=== PATIENT | male | born 1950 | race Caucasian/White ===

== ENCOUNTER 2022-12-18 07:42 | Emergency (ER) | payer MEDICARE ==
[~2022-12-18] VITALS: Ht 188 cm; Wt 76.0 kg
[2022-12-18 08:16] LABS: BASOPHILS % (AUTO) 0.5 % (0.0-2.0); EOSINOPHILS % (AUTO) 1.5 % (1.0-6.0); HEMATOCRIT 46.3 % (41-53); HEMOGLOBIN 15.4 g/dL (13.5-17.5); LYMPHOCYTES # (AUTO) 1.6 K/uL (1.0-4.8); LYMPHOCYTES % (AUTO) 19.7 % (22.0-44.0); MEAN CORPUSCULAR HEMOGLOBIN 33.3 pg (26.0-34.0); MEAN CORPUSCULAR HGB CONC 33.2 G/dL (31.0-37.0); MEAN CORPUSCULAR VOLUME 100 fL (80-100); MONOCYTES # (AUTO) 0.5 K/uL (0.1-1.0); MONOCYTES % (AUTO) 5.9 % (2.0-9.0); NEUTROPHILS # (AUTO) 5.9 K/uL (1.8-7.7); NEUTROPHILS % (AUTO) 72.4 % (40.0-70.0); PLATELET COUNT (AUTO) 227 K/uL (150-450); RED BLOOD CELL COUNT(AUTO) 4.62 MIL/uL (4.50-5.90); RED CELL DISTRIBUTION WIDTH 13.7 % (11.5-14.5); WHITE BLOOD COUNT (AUTO) 8.2 K/uL (4.5-11.0)
[2022-12-18 08:18] LABS: COVID AG,FIA SOURCE NASOPHARYNGEAL
[2022-12-18 08:25] LABS: ANION GAP 16 mmol/L (8-16); CALCIUM, TOTAL 9.3 mg/dL (8.8-10.5); CARBON DIOXIDE 27 mmol/L (22-29); CHLORIDE 98 mmol/L (98-107); GLOMERULAR FILTR. RATE CALC > 60 mL/min (>60); GLUCOSE,RANDOM 107 mg/dL (70-110); POTASSIUM 4.3 mmol/L (3.5-5.1); SODIUM SERUM 141 mmol/L (136-145); UREA NITROGEN, BLOOD 18 mg/dL (7-18)
[2022-12-18 08:29] LABS: PROTHROMBIN TIME 10.8 SEC (9.4-11.6)
[2022-12-18 08:32] LABS: TROPONIN I-HIGH SENSITIVITY 5 ng/L (<76)
[2022-12-18 08:40] LABS: ALANINE AMINOTRANSFERASE 21 U/L (12-78); ALBUMIN 3.4 g/dL (3.4-5.0); ALKALINE PHOSPHATASE 103 U/L (46-116); ASPARTATE AMINOTRANSFERASE 22 U/L (15-37); BILIRUBIN,TOTAL 0.5 mg/dL (0.1-1.0); CREATINE KINASE, TOTAL ONLY 66 U/L (39-308); THYROID STIMULATING HORMONE 3.65 uIU/mL (0.36-3.74); TOTAL PROTEIN, SERUM 7.4 g/dL (6.4-8.2)
[2022-12-18 08:46] LABS: B-TYPE NATRIURETIC PEPTIDE 61 pg/mL (0-100)
[2022-12-18 08:54] LABS: ALCOHOL, BLOOD (SERUM) < 3 mg/dL (0-10)
[2022-12-18 09:12] LABS: SARS-COV2 (COVID) ANTIGEN,FIA Negative (Negative)
[2022-12-18 09:29] LABS: RBC MORPHOLOGY COMMENT ABNORMAL RBC MORPH
[2022-12-18] MEDS ORDERED: PANT40TA54 PO (09:46)
[2022-12-18] MEDS ORDERED: DILT-92 PO (09:46)
[2022-12-18] MEDS ORDERED: TAMS-13 PO (09:46)
[2022-12-18] MEDS ORDERED: BUSP15 PO (09:46)
[2022-12-18] MEDS ORDERED: APIX5TAB PO (09:46)
[2022-12-18 10:25] LABS: APPEARANCE,URINE CLEAR (CLEAR); BILIRUBIN,URINE NEGATIVE (NEGATIVE); COLOR,URINE LIGHT YELLOW (YELLOW); GLUCOSE, URINE (UA) NEGATIVE (NEGATIVE); KETONES,URINE NEGATIVE (NEGATIVE); LEUKOCYTE ESTERASE ,URINE NEGATIVE (NEGATIVE); NITRATE,URINE NEGATIVE (NEGATIVE); OCCULT BLOOD,URINE NEGATIVE (NEGATIVE); PH,URINE 6.5 (5.0-8.0); PROTEIN,URINE NEGATIVE (NEGATIVE); SPECIFIC GRAVITIY, URINE 1.015 (1.003-1.030); UROBILINOGEN,URINE <=1.0 mg/dL (<=1.0)
[2022-12-18 11:31] LABS: TROPONIN I-HIGH SENSITIVITY 6 ng/L (<76)
[2022-12-18 12:47] VITALS: BP 120/93; PULSE 55; RESP 18; TEMP 97.8
== END 2022-12-18 12:59 | disposition home or self-care (01) ==
LOC: EMS 07:47
DX: F41.9 Anxiety disorder, unspecified (principal); I48.91 Unspecified atrial fibrillation; Z20.822 Contact with and (suspected) exposure to COVID-19
CPT/HCPCS: 99284; 71045; 87426; 80053; 82550; 83880; 84443; 84484; 85025; 85610; 85730; 36415; 93005; 81003; G0480

== ENCOUNTER 2023-09-09 08:38 | Inpatient (IN) | payer MEDICARE, MEDICAID ==
[~2023-09-09] VITALS: Ht 188 cm; Wt 88.7 kg
[~2023-09-09 08:38] MED LIST: APIX5TAB PO; BUSP15 PO; DILT-92 PO; PANT40TA54 PO; TAMS0.4C94 PO
[2023-09-09] MEDS ORDERED: LEVO25TA9 PO (09:06)
[2023-09-09] MEDS ORDERED: DIAZ5TAB4 PO (09:06)
[2023-09-09] MEDS ORDERED: ESCI5TAB16 PO (09:06)
[2023-09-09] MEDS ORDERED: METO-408 PO (09:06)
[2023-09-09] MEDS ORDERED: MIRT-92 PO (09:06)
[2023-09-09] MEDS ORDERED: MIDO5TAB5 PO (09:06)
[2023-09-09] MEDS ORDERED: FLUD.1 PO (09:06)
[2023-09-09] MEDS ORDERED: GABA-1181 PO (09:06)
[2023-09-09 09:27] LABS: ANION GAP 7 mmol/L (8-16); CALCIUM, TOTAL 8.4 mg/dL (8.8-10.5); CARBON DIOXIDE 29 mmol/L (22-29); CHLORIDE 103 mmol/L (98-107); CREATININE 1.09 mg/dL (0.60-1.30); GLOMERULAR FILTR. RATE CALC > 60 mL/min (>60); GLUCOSE,RANDOM 102 mg/dL (70-110); POTASSIUM 3.1 mmol/L (3.5-5.1); SODIUM SERUM 139 mmol/L (136-145); UREA NITROGEN, BLOOD 11 mg/dL (7-18)
[2023-09-09 09:49] LABS: ALCOHOL, URINE DRUG SCREEN POSITIVE (NEGATIVE); AMPHET/METH SCREEN,URINE NEGATIVE (NEGATIVE); BARBITURATE SCREEN, URINE NEGATIVE (NEGATIVE); BENZODIAZEPINES SCREEN,URINE POSITIVE (NEGATIVE); CANNABINOID SCREEN,URINE NEGATIVE (NEGATIVE); COCAINE SCREEN,URINE NEGATIVE (NEGATIVE); METHADONE SCREEN, URINE NEGATIVE (NEGATIVE); OPIATE SCREEN,URINE NEGATIVE (NEGATIVE); PHENCYCLIDINE SCREEN,URINE NEGATIVE (NEGATIVE)
[2023-09-09] MEDS: LORazepam 2 MG TABLET PO PRN (10:43)
[2023-09-09 11:13] LABS: COVID AG,FIA SOURCE NASAL SWAB
[2023-09-09 11:14] LABS: APPEARANCE,URINE CLEAR (CLEAR); BILIRUBIN,URINE NEGATIVE (NEGATIVE); COLOR,URINE COLORLESS (YELLOW); GLUCOSE, URINE (UA) NEGATIVE (NEGATIVE); KETONES,URINE NEGATIVE (NEGATIVE); LEUKOCYTE ESTERASE ,URINE NEGATIVE (NEGATIVE); NITRATE,URINE NEGATIVE (NEGATIVE); OCCULT BLOOD,URINE NEGATIVE (NEGATIVE); PROTEIN,URINE NEGATIVE (NEGATIVE); SPECIFIC GRAVITIY, URINE 1.006 (1.003-1.030); UROBILINOGEN,URINE <=1.0 mg/dL (<=1.0)
[2023-09-09 11:44] LABS: SARS-COV2 (COVID) ANTIGEN,FIA Negative (Negative)
[2023-09-09] MEDS: ZINC OXIDE 16% PASTE 57 GM TUBE TP ONE (11:53)
[2023-09-09 12:31] LABS: EOSINOPHILS % (AUTO) 1.1 % (1.0-6.0); HEMATOCRIT 40.1 % (41-53); HEMOGLOBIN 13.6 g/dL (13.5-17.5); LYMPHOCYTES # (AUTO) 1.1 K/uL (1.0-4.8); LYMPHOCYTES % (AUTO) 21.1 % (22.0-44.0); MEAN CORPUSCULAR HEMOGLOBIN 36.5 pg (26.0-34.0); MEAN CORPUSCULAR HGB CONC 33.9 G/dL (31.0-37.0); MEAN CORPUSCULAR VOLUME 108 fL (80-100); MONOCYTES # (AUTO) 0.4 K/uL (0.1-1.0); MONOCYTES % (AUTO) 8.6 % (2.0-9.0); NEUTROPHILS # (AUTO) 3.6 K/uL (1.8-7.7); NEUTROPHILS % (AUTO) 68.2 % (40.0-70.0); PLATELET COUNT (AUTO) 209 K/uL (150-450); RED BLOOD CELL COUNT(AUTO) 3.73 MIL/uL (4.50-5.90); RED CELL DISTRIBUTION WIDTH 14.9 % (11.5-14.5); WHITE BLOOD COUNT (AUTO) 5.2 K/uL (4.5-11.0)
[2023-09-09] MEDS: DIAZEPAM 5 MG TABLET PO ONE (14:22)
[2023-09-09] MEDS: POTASSIUM CHLORIDE 20 MEQ ER TABLET PO ONE (14:22)
[2023-09-09] MEDS ORDERED: GABA-529 PO (14:32)
[2023-09-09] MEDS ORDERED: MIDO10TA PO (14:32)
[2023-09-09] MEDS: DILTIAZEM HCL CD 120 MG ER CAPSULE PO ONE (14:47)
[2023-09-09 15:00] LABS: TROPONIN I-HIGH SENSITIVITY 7 ng/L (<76)
[2023-09-09 15:44] LABS: TROPONIN I-HIGH SENSITIVITY 9 ng/L (<76)
[2023-09-09 18:36] LABS: RBC MORPHOLOGY COMMENT ABNORMAL RBC MORPH
[2023-09-09] MEDS: QUEtiapine FUMARATE 100 MG TABLET PO PRN (21:30)
[2023-09-09] MEDS: ZOLPIDEM TARTRATE 10 MG TABLET PO PRN (21:31)
[2023-09-09 23:16] VITALS: BP 120/70; PULSE 106; RESP 18; TEMP 96.7; O2SAT 96
[2023-09-10] MEDS ORDERED: ONDANSETRON HCL 4 MG TABLET PO PRN (07:00)
[2023-09-10] MEDS ORDERED: ALBUTEROL SULFATE HFA 90 MCG/PUFF 8 GM INHALER IH PRN (07:00)
[2023-09-10] MEDS ORDERED: MAG HYDROX/ALUMINUM HYD/SIMETH ES 30 ML SUSPENSION UDCUP PO PRN (07:00)
[2023-09-10] MEDS ORDERED: LOPERAMIDE HCL 2 MG CAPSULE PO PRN (07:00)
[2023-09-10] MEDS ORDERED: PETROLATUM,WHITE 28 GM JELLY TP PRN (07:00)
[2023-09-10] MEDS ORDERED: GuaiFENesin/D-METHORPHAN [SUGAR-FREE] 200-20MG/10 ML SYRUP UDCUP PO PRN (07:00)
[2023-09-10 08:44] VITALS: BP 93/53; PULSE 84; RESP 16; TEMP 97.7; O2SAT 96
[2023-09-10] MEDS: PANTOPRAZOLE SODIUM 40 MG DR TABLET PO SCH (08:53)
[2023-09-10] MEDS: GABAPENTIN 100 MG CAPSULE PO SCH (08:53)
[2023-09-10] MEDS: APIXABAN 5 MG TABLET PO SCH (08:54)
[2023-09-10] MEDS: METOPROLOL SUCCINATE 25 MG ER TABLET PO SCH (09:00)
[2023-09-10] MEDS ORDERED: PANTOPRAZOLE SODIUM 40 MG DR TABLET PO SCH (09:00)
[2023-09-10] MEDS: TAMSULOSIN HCL 0.4 MG CAPSULE PO SCH (09:00)
[2023-09-10] MEDS ORDERED: AMOX TR/POT CLAV 875 MG/125 MG TABLET PO SCH (09:00)
[2023-09-10] MEDS: LEVOFLOXACIN 500 MG TABLET PO SCH (09:00)
[2023-09-10] MEDS ORDERED: METOPROLOL SUCCINATE 25 MG ER TABLET PO SCH (09:00)
[2023-09-10] MEDS: BACITRACIN 28 GM OINTMENT TP SCH (09:23)
[2023-09-10 10:34] VITALS: BP 98/65; PULSE 80; RESP 18; TEMP 98
[2023-09-10] MEDS: ACETAMINOPHEN 325 MG TABLET PO PRN (10:45)
[2023-09-10 11:45] VITALS: RESP 18
[2023-09-10] MEDS: ESCITALOPRAM OXALATE 10 MG TABLET PO SCH (12:57)
[2023-09-10 14:40] VITALS: BP 110/68; PULSE 100; RESP 18
[2023-09-10] MEDS: GABAPENTIN 300 MG CAPSULE PO SCH (20:04)
[2023-09-10] MEDS: MIRTAZAPINE 15 MG TABLET PO SCH (20:04)
[2023-09-10] MEDS ORDERED: GABAPENTIN 300 MG CAPSULE PO SCH (21:00)
[2023-09-10 21:12] VITALS: BP 114/68; PULSE 98; RESP 19; TEMP 97.4; O2SAT 99
[2023-09-10 21:30] VITALS: BP 114/68; PULSE 69; RESP 18; TEMP 97.4; O2SAT 99
[2023-09-11] MEDS: LEVOTHYROXINE SODIUM 25 MCG TABLET PO SCH (06:30)
[2023-09-11] MEDS ORDERED: LEVOTHYROXINE SODIUM 25 MCG TABLET PO SCH (06:30)
[2023-09-11 08:57] LABS: HEMOGLOBIN A1C 5.1 % (3.8-5.6)
[2023-09-11 09:16] LABS: ALCOHOL, URINE DRUG SCREEN NEGATIVE (NEGATIVE); AMPHET/METH SCREEN,URINE NEGATIVE (NEGATIVE); BARBITURATE SCREEN, URINE NEGATIVE (NEGATIVE); BENZODIAZEPINES SCREEN,URINE POSITIVE (NEGATIVE); CANNABINOID SCREEN,URINE NEGATIVE (NEGATIVE); COCAINE SCREEN,URINE NEGATIVE (NEGATIVE); METHADONE SCREEN, URINE NEGATIVE (NEGATIVE); OPIATE SCREEN,URINE NEGATIVE (NEGATIVE); PHENCYCLIDINE SCREEN,URINE NEGATIVE (NEGATIVE)
[2023-09-11 09:18] LABS: CHOL/HDL RATIO 1.9 (4.2-7.3); THYROID STIMULATING HORMONE 3.7 uIU/mL (0.36-3.74)
[2023-09-11 09:25] LABS: APPEARANCE,URINE CLEAR (CLEAR); BILIRUBIN,URINE NEGATIVE (NEGATIVE); COLOR,URINE YELLOW (YELLOW); GLUCOSE, URINE (UA) NEGATIVE (NEGATIVE); KETONES,URINE NEGATIVE (NEGATIVE); LEUKOCYTE ESTERASE ,URINE NEGATIVE (NEGATIVE); NITRATE,URINE NEGATIVE (NEGATIVE); OCCULT BLOOD,URINE NEGATIVE (NEGATIVE); PH,URINE 6.5 (5.0-8.0); PH,URINE DRUG SCREEN 6.5 (5.0-8.0); PROTEIN,URINE NEGATIVE (NEGATIVE); SPECIFIC GRAVITIY, URINE 1.021 (1.003-1.030); UROBILINOGEN,URINE <=1.0 mg/dL (<=1.0)
[2023-09-11 10:39] VITALS: BP 128/67; PULSE 95; RESP 18; TEMP 97.8
[2023-09-11] MEDS: POTASSIUM CHLORIDE 20 MEQ ER TABLET PO ONE (11:29)
[2023-09-11 12:24] VITALS: BP 115/80
[2023-09-11 20:36] VITALS: BP 131/80; PULSE 87; RESP 20; TEMP 97; O2SAT 95
[2023-09-12 00:35] VITALS: BP 114/72; PULSE 86; RESP 18; TEMP 97.6; O2SAT 97
[2023-09-12 08:34] VITALS: BP 119/80; PULSE 79; RESP 19; TEMP 97.8; O2SAT 98
[2023-09-12] MEDS: ACETAMINOPHEN 325 MG TABLET PO PRN (19:19)
[2023-09-12 20:54] VITALS: BP 99/64; PULSE 62; RESP 16; TEMP 97.1; O2SAT 99
[2023-09-12 21:00] VITALS: BP 119/80; PULSE 62; RESP 19; TEMP 97.1; O2SAT 98
[2023-09-13 08:21] VITALS: BP 110/68; PULSE 67; RESP 17; TEMP 96.1; O2SAT 99
[2023-09-13 11:10] VITALS: BP 141/89
[2023-09-13 13:00] VITALS: BP 120/80; PULSE 80; RESP 18; TEMP 98.1; O2SAT 98
[2023-09-13 17:13] VITALS: BP 122/84; PULSE 81; RESP 18
[2023-09-13 20:33] VITALS: BP 131/93; PULSE 68; RESP 18; TEMP 96.8
[2023-09-14 03:51] VITALS: BP 120/82; PULSE 75; RESP 18; TEMP 98; O2SAT 98
[2023-09-14 09:12] VITALS: BP 147/87; PULSE 71; RESP 18; TEMP 96.3; O2SAT 99
[2023-09-14 10:51] VITALS: BP 130/85; PULSE 71; RESP 18; TEMP 97.3; O2SAT 98
[2023-09-14 22:02] VITALS: BP 105/64; PULSE 69; RESP 18; TEMP 96.8; O2SAT 97
[2023-09-14 22:36] VITALS: BP 105/64; PULSE 69; RESP 18; TEMP 96.8; O2SAT 97
[2023-09-15] MEDS: MULTIVITAMINS WITH MINERALS, THERAPEUTIC TABLET PO SCH (08:18)
[2023-09-15 09:11] VITALS: BP 94/60; PULSE 69; RESP 16; TEMP 96.5; O2SAT 99
[2023-09-15 10:19] VITALS: BP 123/70; RESP 18
[2023-09-15] MEDS: DIAZEPAM 5 MG TABLET PO SCH (16:13)
[2023-09-15 20:23] VITALS: BP 95/63; PULSE 95; RESP 16; TEMP 97.4; O2SAT 98
[2023-09-15] MEDS: CLINDAMYCIN HCL 300 MG CAPSULE PO SCH (21:50)
[2023-09-16 07:47] LABS: BASOPHILS % (AUTO) 0.8 % (0.0-2.0); EOSINOPHILS % (AUTO) 1.9 % (1.0-6.0); HEMATOCRIT 42.4 % (41-53); HEMOGLOBIN 14.2 g/dL (13.5-17.5); LYMPHOCYTES # (AUTO) 1.7 K/uL (1.0-4.8); LYMPHOCYTES % (AUTO) 30.9 % (22.0-44.0); MEAN CORPUSCULAR HGB CONC 33.5 G/dL (31.0-37.0); MEAN CORPUSCULAR VOLUME 108 fL (80-100); MONOCYTES # (AUTO) 0.6 K/uL (0.1-1.0); MONOCYTES % (AUTO) 10.6 % (2.0-9.0); NEUTROPHILS # (AUTO) 3.1 K/uL (1.8-7.7); NEUTROPHILS % (AUTO) 55.8 % (40.0-70.0); PLATELET COUNT (AUTO) 210 K/uL (150-450); RED BLOOD CELL COUNT(AUTO) 3.94 MIL/uL (4.50-5.90); RED CELL DISTRIBUTION WIDTH 14.8 % (11.5-14.5); WHITE BLOOD COUNT (AUTO) 5.6 K/uL (4.5-11.0)
[2023-09-16 08:44] VITALS: BP 120/78; PULSE 93; RESP 18; TEMP 96.7; O2SAT 97
[2023-09-16] MEDS ORDERED: ESCITALOPRAM OXALATE 10 MG TABLET PO SCH (09:00)
[2023-09-16 17:09] VITALS: BP 118/76
[2023-09-16] MEDS: NICOTINE 14 MG/24 HOUR PATCH TD PRN (18:29)
[2023-09-16 20:29] VITALS: BP 118/76; PULSE 65; RESP 18; TEMP 96.2; O2SAT 99
[2023-09-17 08:52] VITALS: BP 103/69; PULSE 92; RESP 18; TEMP 96.6; O2SAT 99
[2023-09-17] MEDS: DIAZEPAM 5 MG TABLET PO SCH (16:32)
[2023-09-17 17:25] VITALS: BP 112/78; PULSE 87; RESP 18
[2023-09-17] MEDS: QUEtiapine FUMARATE 100 MG TABLET PO SCH (20:37)
[2023-09-17 21:30] VITALS: BP 148/102; PULSE 77; RESP 17; TEMP 97.5; O2SAT 96
[2023-09-18 08:39] VITALS: BP 109/62; PULSE 78; RESP 19; TEMP 98.1; O2SAT 95
[2023-09-18] MEDS: DOCUSATE SODIUM 100 MG CAPSULE PO PRN (16:07)
[2023-09-18 18:09] VITALS: RESP 18
[2023-09-18 19:04] VITALS: RESP 18
[2023-09-18 20:37] VITALS: BP 102/70; PULSE 69; RESP 18; TEMP 98.6; O2SAT 98
[2023-09-18] MEDS: MAGNESIUM HYDROXIDE SUSPENSION 30 ML UDCUP PO PRN (20:52)
[2023-09-19 08:27] VITALS: BP 97/60; PULSE 66; RESP 15; TEMP 97.3; O2SAT 98
[2023-09-19] MEDS: GABAPENTIN 100 MG CAPSULE PO SCH (09:14)
[2023-09-19] MEDS: QUEtiapine FUMARATE 200 MG TABLET PO SCH (20:12)
[2023-09-19 21:17] VITALS: BP 128/89; PULSE 87; RESP 16; TEMP 98.6; O2SAT 98
[2023-09-20 08:22] VITALS: BP 121/69; PULSE 65; RESP 19; TEMP 96.9; O2SAT 99
[2023-09-20 17:00] VITALS: BP 119/71
[2023-09-20 20:15] VITALS: PULSE 71; RESP 17; TEMP 97; O2SAT 98
[2023-09-21 08:26] VITALS: BP 120/66; PULSE 68; RESP 19; TEMP 97.7; O2SAT 97
[2023-09-21 20:55] VITALS: BP 109/56; PULSE 70; RESP 19; TEMP 97; O2SAT 98
[2023-09-22 08:15] VITALS: BP 140/64; PULSE 73; RESP 17; TEMP 98.1; O2SAT 97
[2023-09-22 11:48] VITALS: RESP 17
[2023-09-22 12:48] VITALS: RESP 16
[2023-09-22] MEDS: QUEtiapine FUMARATE 100 MG TABLET PO PRN (14:21)
[2023-09-23 08:21] VITALS: BP 125/66; PULSE 69; RESP 18; TEMP 98.3; O2SAT 97
[2023-09-23 21:31] VITALS: BP 104/65; PULSE 68; RESP 19; TEMP 97.5; O2SAT 99
[2023-09-24 09:36] VITALS: BP 90/61; PULSE 67; RESP 18; TEMP 96.7; O2SAT 100
[2023-09-24 12:00] VITALS: BP 106/68; PULSE 79; RESP 18
[2023-09-24 20:55] VITALS: BP 96/63; PULSE 71; RESP 18; TEMP 97.3; O2SAT 68
[2023-09-25 08:40] VITALS: BP 110/64; PULSE 68; RESP 18; TEMP 98.3; O2SAT 95
[2023-09-25] MEDS ORDERED: DIAZ-328 PO (13:54)
[2023-09-25] MEDS ORDERED: ESCI-8 PO (14:01)
[2023-09-25] MEDS ORDERED: GABA-1216 PO (14:02)
[2023-09-25] MEDS ORDERED: MIRT-89 PO (14:04)
[2023-09-25] MEDS ORDERED: QUET200T PO (14:04)
[2023-09-25] MEDS ORDERED: CLIN300C58 PO (14:08)
[2023-09-25] MEDS ORDERED: BACI28.410 TP (14:09)
[2023-09-26] MEDS ORDERED: ESCI-8 PO (09:56)
[2023-09-26] MEDS ORDERED: DIAZ-328 PO ×2 (09:56→09:59)
[2023-09-26] MEDS ORDERED: QUET200T30 PO (09:56)
== END 2023-09-25 18:44 | disposition home or self-care (01) | DRG 885 ==
LOC: EMS 08:38 → B2S 16:07
PROVIDERS: ADMIT Psychiatry & Neurology Psychiatry; ATTEND Psychiatry & Neurology Psychiatry
PROC: GZHZZZZ Group Psychotherapy (ICD-10-PCS; principal; 2023-09-11)
PROC: GZ52ZZZ Individual Psychotherapy, Cognitive (ICD-10-PCS; 2023-09-11)
DX: F32.2 Major depressive disorder, single episode, severe without psychotic features (principal); R45.851 Suicidal ideations; E87.6 Hypokalemia; E03.9 Hypothyroidism, unspecified; G62.9 Polyneuropathy, unspecified; K21.9 Gastro-esophageal reflux disease without esophagitis; N40.0 Benign prostatic hyperplasia without lower urinary tract symptoms; L40.9 Psoriasis, unspecified; F10.10 Alcohol abuse, uncomplicated; I10 Essential (primary) hypertension; G47.00 Insomnia, unspecified; Z20.822 Contact with and (suspected) exposure to COVID-19; I48.91 Unspecified atrial fibrillation; F17.210 Nicotine dependence, cigarettes, uncomplicated; Y90.4 Blood alcohol level of 80-99 mg/100 ml; F41.9 Anxiety disorder, unspecified; Z79.899 Other long term (current) drug therapy; Z88.0 Allergy status to penicillin; Z79.01 Long term (current) use of anticoagulants; Z91.51 Personal history of suicidal behavior
CPT/HCPCS: 71045; 80048; 80061; 80307; 81003; 83036; 84132; 84443; 84484; 85025; 87081; 93005; G0480; 36415-L1; 36415-TC

== ENCOUNTER 2024-01-30 22:14 | Inpatient (IN) | payer MEDICARE, MEDICAID ==
[~2024-01-30 22:14] MED LIST changes: -BUSP15 PO; +DIAZ5TAB4 PO; -DILT-92 PO; +ESCI-8 PO; +GABA-1181 PO; +LEVO25TA9 PO; +METO-408 PO; +MIRT-92 PO; +QUET300T19 PO
[2024-02-01] MEDS: INFLUENZA VIRUS VACCINE TVS (6MO+) 2024-25/PF 45 MCG/0.5 ML SYRINGE IM. ONE (21:00)
[2024-02-01] MEDS: PNEUMOCOCCAL VACCINE POLYVALENT 0.5 ML SYRINGE [PPSV23] IM. ONE (21:00)
[2024-02-01] MEDS: MIRTAZAPINE 15 MG TABLET PO SCH (21:17)
[2024-02-01] MEDS: QUEtiapine FUMARATE 300 MG TABLET PO SCH (21:18)
[2024-02-01] MEDS: GABAPENTIN 300 MG CAPSULE PO SCH (21:18)
[2024-02-01] MEDS ORDERED: NITROGLYCERIN 0.4 MG SUBLINGUAL TABLET #25 SL PRN (21:45)
[2024-02-01 22:38] VITALS: BP 136/77; PULSE 85; RESP 18; TEMP 97.7; O2SAT 97
[2024-02-02] MEDS: LORazepam 2 MG TABLET PO PRN (07:04)
[2024-02-02] MEDS: LEVOTHYROXINE SODIUM 25 MCG TABLET PO SCH (07:11)
[2024-02-02] MEDS: ESCITALOPRAM OXALATE 10 MG TABLET PO SCH (08:19)
[2024-02-02] MEDS: APIXABAN 5 MG TABLET PO SCH (08:19)
[2024-02-02] MEDS: HYDROCORTISONE 0.5% 30 GM CREAM TP SCH (08:20)
[2024-02-02] MEDS: FAMOTIDINE 20 MG TABLET PO SCH (08:20)
[2024-02-02] MEDS: MIDODRINE HCL 5 MG TABLET PO SCH (08:20)
[2024-02-02 08:46] VITALS: BP 100/52; PULSE 86; RESP 16; TEMP 97.5; O2SAT 97
[2024-02-02] MEDS ORDERED: CloNIDine HCL 0.1 MG TABLET PO PRN (13:30)
[2024-02-02] MEDS ORDERED: ONDANSETRON 4 MG TABLET PO PRN (13:30)
[2024-02-02] MEDS ORDERED: BACITRACIN 28 GM OINTMENT TP PRN (13:30)
[2024-02-02] MEDS ORDERED: MAGNESIUM HYDROXIDE SUSPENSION 30 ML UDCUP PO PRN (13:30)
[2024-02-02] MEDS ORDERED: PETROLATUM,WHITE 28 GM JELLY TP PRN (13:30)
[2024-02-02] MEDS ORDERED: DOCUSATE SODIUM 100 MG CAPSULE PO PRN (13:30)
[2024-02-02] MEDS ORDERED: LOPERAMIDE HCL 2 MG CAPSULE PO PRN (13:30)
[2024-02-02] MEDS ORDERED: OMEPRAZOLE 20 MG CAPSULE PO PRN (13:30)
[2024-02-02] MEDS ORDERED: ALBUTEROL SULFATE HFA 90 MCG/PUFF 8 GM INHALER IH PRN (13:30)
[2024-02-02] MEDS ORDERED: BENZOCAINE/MENTHOL LOZENGE PO PRN (13:30)
[2024-02-02] MEDS: ACETAMINOPHEN 325 MG TABLET PO PRN (18:37)
[2024-02-02 18:38] VITALS: BP 113/56; PULSE 89; RESP 18; TEMP 97.6; O2SAT 98
[2024-02-02 19:37] VITALS: RESP 18
[2024-02-02 20:12] VITALS: BP 100/78; PULSE 86; RESP 18; TEMP 97.9; O2SAT 98
[2024-02-02] MEDS: TAMSULOSIN HCL 0.4 MG CAPSULE PO SCH (21:23)
[2024-02-03 09:11] VITALS: BP 101/52; PULSE 70; RESP 16; TEMP 97.9; O2SAT 95
[2024-02-03 11:04] VITALS: BP 137/76; PULSE 94; RESP 18
[2024-02-03 12:36] VITALS: RESP 16
[2024-02-03 17:19] VITALS: BP 112/75; PULSE 86; RESP 17
[2024-02-03 21:07] VITALS: BP 115/69; PULSE 74; RESP 18; TEMP 97.3; O2SAT 98
[2024-02-04 09:34] VITALS: BP 118/77; PULSE 68; RESP 19; O2SAT 95
[2024-02-04 11:34] VITALS: BP 118/77; PULSE 68; RESP 19; TEMP 98
[2024-02-04 12:34] VITALS: BP 122/71; PULSE 71; RESP 18; TEMP 97.6
[2024-02-04 15:55] LABS: APPEARANCE,URINE CLEAR (CLEAR); BILIRUBIN,URINE NEGATIVE (NEGATIVE); COLOR,URINE LIGHT YELLOW (YELLOW); GLUCOSE, URINE (UA) NEGATIVE (NEGATIVE); KETONES,URINE NEGATIVE (NEGATIVE); LEUKOCYTE ESTERASE ,URINE NEGATIVE (NEGATIVE); NITRATE,URINE NEGATIVE (NEGATIVE); OCCULT BLOOD,URINE NEGATIVE (NEGATIVE); PROTEIN,URINE NEGATIVE (NEGATIVE); UROBILINOGEN,URINE <=1.0 mg/dL (<=1.0)
[2024-02-04 16:13] LABS: ALCOHOL, URINE DRUG SCREEN NEGATIVE (NEGATIVE); AMPHET/METH SCREEN,URINE NEGATIVE (NEGATIVE); BARBITURATE SCREEN, URINE NEGATIVE (NEGATIVE); BENZODIAZEPINES SCREEN,URINE POSITIVE (NEGATIVE); CANNABINOID SCREEN,URINE NEGATIVE (NEGATIVE); COCAINE SCREEN,URINE NEGATIVE (NEGATIVE); METHADONE SCREEN, URINE NEGATIVE (NEGATIVE); OPIATE SCREEN,URINE NEGATIVE (NEGATIVE); PHENCYCLIDINE SCREEN,URINE NEGATIVE (NEGATIVE)
[2024-02-04] MEDS: DIAZEPAM 5 MG TABLET PO PRN (18:15)
[2024-02-04 20:01] VITALS: BP 132/72; PULSE 82; RESP 18; TEMP 98
[2024-02-04] MEDS: HALOPERIDOL 5 MG TABLET PO PRN (21:24)
[2024-02-04] MEDS: ZOLPIDEM TARTRATE 10 MG TABLET PO PRN (22:16)
[2024-02-05] MEDS: POLYETHYLENE GLYCOL 3350 17 GM PACKET PO SCH (08:12)
[2024-02-05 08:30] VITALS: BP 115/73; PULSE 93; RESP 17; TEMP 97.1; O2SAT 97
[2024-02-05 11:26] VITALS: BP 125/88; PULSE 88; RESP 18; TEMP 97.8; O2SAT 98
[2024-02-05 21:05] VITALS: BP 122/92; PULSE 85; RESP 18; TEMP 96.8; O2SAT 99
[2024-02-06 08:38] VITALS: BP 132/76; PULSE 80; RESP 18; TEMP 97.6; O2SAT 100
[2024-02-06 15:42] VITALS: BP 116/65; PULSE 88; RESP 17; TEMP 98; O2SAT 99
[2024-02-06 21:24] VITALS: BP 136/86; PULSE 89; RESP 18; TEMP 98; O2SAT 96
[2024-02-07 09:25] VITALS: BP 92/59; PULSE 94; RESP 18; TEMP 98; O2SAT 96
[2024-02-07 22:36] VITALS: BP 136/83; PULSE 91; RESP 18; TEMP 98; O2SAT 97
[2024-02-08 09:00] VITALS: BP 133/79; PULSE 87; RESP 18; TEMP 97.5; O2SAT 98
[2024-02-08] MEDS: MAG HYDROX/ALUMINUM HYD/SIMETH ES 30 ML SUSPENSION UDCUP PO PRN (10:52)
[2024-02-08 15:01] VITALS: BP 135/79; PULSE 85; RESP 18; TEMP 98; O2SAT 99
[2024-02-08 20:22] VITALS: BP 117/66; PULSE 90; RESP 17; TEMP 97.4; O2SAT 97
[2024-02-08] MEDS: DIAZEPAM 5 MG TABLET PO PRN (21:05)
[2024-02-09 11:03] VITALS: BP 140/108; PULSE 91; RESP 17; TEMP 97.5; O2SAT 99
[2024-02-09] MEDS: CHLORHEXIDINE GLUCONATE 0.12% 15 ML UDCUP ORAL RINSE PO PRN (16:23)
[2024-02-09 20:08] VITALS: RESP 18
[2024-02-10 08:27] VITALS: BP 145/89; PULSE 101; RESP 18; TEMP 97.4; O2SAT 98
[2024-02-10 20:21] VITALS: BP 121/81; PULSE 88; RESP 19; TEMP 97.6; O2SAT 97
[2024-02-11 10:24] VITALS: BP 109/68; PULSE 94; RESP 18; TEMP 96.4; O2SAT 95
[2024-02-11 20:46] VITALS: BP 132/82; PULSE 84; RESP 16; TEMP 96.4; O2SAT 97
[2024-02-12] MEDS ORDERED: QUET300T2 PO (13:20)
[2024-02-12] MEDS ORDERED: FAMO20 PO (13:20)
[2024-02-12] MEDS ORDERED: MIDO5TAB29 PO (13:21)
[2024-02-12] MEDS ORDERED: DIAZ-328 PO (13:34)
== END 2024-02-12 17:22 | disposition home or self-care (01) | DRG 885 ==
LOC: 3EI 02-01 19:20
PROVIDERS: ADMIT Psychiatry & Neurology Psychiatry; ATTEND Psychiatry & Neurology Psychiatry
DX: F20.9 Schizophrenia, unspecified (principal); I48.20 Chronic atrial fibrillation, unspecified; I10 Essential (primary) hypertension; K59.00 Constipation, unspecified; F41.9 Anxiety disorder, unspecified; G47.00 Insomnia, unspecified; N40.0 Benign prostatic hyperplasia without lower urinary tract symptoms; E03.9 Hypothyroidism, unspecified; F32.A Depression, unspecified; Z79.01 Long term (current) use of anticoagulants
CPT/HCPCS: 80307; 81003; 87081

== ENCOUNTER → 2025-02-25 | Emergency (ER) | payer MEDICARE, MEDICAID ==
[~2025-02-25] VITALS: Ht 188 cm; Wt 86.4 kg
[~2025-02-25] MED LIST changes: +ATOR20TA65 PO; +BISA10SU11 PR; +CHOL100062 PO; +DIAZ-328 PO; -DIAZ5TAB4 PO; +DOCU-412 PO; -ESCI-8 PO; -GABA-1181 PO; +HYDR-5256 PO; +LANS-78 PO; +MELA5TAB40 PO; -METO-408 PO; +MIDO5TAB29 PO; +MIRT-149 PO; -MIRT-92 PO; +OMEP-148 PO; -PANT40TA54 PO; +POLY17PO47 PO; -QUET300T19 PO; +TRAZ150T80 PO; +VENL-193 PO
[2025-02-25 13:37] VITALS: TEMP 97.9
[2025-02-25 14:13] LABS: COVID AG,FIA SOURCE NASAL SWAB
[2025-02-25 14:51] LABS: PLATELET COUNT (AUTO) 211 K/uL (150-450); RED BLOOD CELL COUNT(AUTO) 4.24 MIL/uL (4.50-5.90); RED CELL DISTRIBUTION WIDTH 13.3 % (11.5-14.5); WHITE BLOOD COUNT (AUTO) 9.3 K/uL (4.5-11.0)
[2025-02-25 14:54] LABS: SARS-COV2 (COVID) ANTIGEN,FIA Negative (Negative)
[2025-02-25 15:04] LABS: CALCIUM, TOTAL 9.1 mg/dL (8.8-10.5); CREATININE 1.14 mg/dL (0.60-1.30); GLOMERULAR FILTR. RATE CALC > 60 mL/min (>60); GLUCOSE,RANDOM 127 mg/dL (70-110); SODIUM SERUM 138 mmol/L (136-145); UREA NITROGEN, BLOOD 21 mg/dL (7-18)
[2025-02-25 15:54] VITALS: BP 114/78; PULSE 75; RESP 16; O2SAT 98
== END | disposition still patient (30) ==
LOC: EMS 12:22
DX: F41.9 Anxiety disorder, unspecified (principal); F32.A Depression, unspecified; F20.9 Schizophrenia, unspecified; F17.210 Nicotine dependence, cigarettes, uncomplicated; Z79.899 Other long term (current) drug therapy; Z79.01 Long term (current) use of anticoagulants; Z88.0 Allergy status to penicillin; Z20.822 Contact with and (suspected) exposure to COVID-19
CPT/HCPCS: 99283; 87426; 80048; 85025; 36415; G0480